=== PATIENT | male | born 1980 | race Caucasian/White ===

== ENCOUNTER 2020-09-02 09:54 | Emergency (ER) | payer MEDICAID, SELFPAY ==
--- NOTE | 2020-09-02 10:38 | XR_ITS ---
EXAMINATION: XR SACRUM AND COCCYX CLINICAL INFORMATION: Coccyx: Pain. COMPARISON: None TECHNIQUE: 2 views of the sacrum and 2 views of the coccyx were obtained. FINDINGS: There is normal sacrococcygeal curvature. No acute fracture is seen. The sacroiliac joints are unremarkable. The soft tissues are unremarkable. XR/XR sacrum coccyx min 2V IMPRESSION: Unremarkable examination.
[2020-09-02 10:41] VITALS: PULSE 90; RESP 16; TEMP 37.3; O2SAT 98; BMI 38.7
--- NOTE | 2020-09-02 10:43 | ED.BACK ---
HPI - Back Pain/Injury General Chief Complaint: Back Pain/Injury Stated Complaint: Tail bone pain Time Seen by Provider: 09/02/20 10:28 Source: patient Mode of arrival: ambulatory Limitations: language barrier ( Syrian-speaking) History of Present Illness HPI Narrative: 40yoM c PMHx of hypertension and hyperlipidemia presenting to the ED with complaints of left-sided coccyx pain after prolonged sitting at work. Denies any other complaints or concerns at this time. Related Data Previous Rx's Medication Instructions Recorded cyclobenzaprine 10 mg PO TID PRN #10 tab 09/02/20 oxycodone-acetaminophen [Percocet] 1 tab PO Q6H PRN #10 tab 09/02/20 Allergies Allergy/AdvReac Type Severity Reaction Status Date / Time aspirin Allergy Severe angioedema Verified 09/02/20 10:38 Review of Systems Review of Systems: Constitutional : No trauma, No Weight loss, No Fever, No Chills, ENT/Mouth : No Hearing loss, No Ear Pain, No Nasal Congestion, No Sinus Pain, No Hoarseness, No sore throat, No Rhinorrhea, No Swallowing Difficulty Cardiovascular : No Chest Pain, No SOB Respiratory : No Cough, No Dyspnea Gastrointestinal : No Nausea, No Vomiting, No Diarrhea, No abdominal Pain, No Hematochezia, No Melena Genitourinary : No Dysuria, No Urinary Frequency, No Hematuria, No Urinary or Bowel Incontinence/retention Musculoskeletal : + Back/buttocks pain, No neck pain, No joint stiffness, No joint swelling Skin : No Skin Lesions, No rash or signs of infection Neuro : No Weakness, No radiation, No Numbness, No Paresthesias, No headache, no loss of bowel or bladder incontinence, no saddle anesthesia Denies history of IV drug usage. Yes all other systems are reviewed and are negative [facility] Past Medical History Attestation statement: The following information was validated with the patient. Social History Social History Smoking Status: Never smoker Use of substances other than those prescribed or required for medical reasons: No Advance Directives: No Advance Directives Information Provided: Yes Physical Exam Vital Signs: Vital Signs: Last Vital Signs Temp 99.2 F 09/02/20 10:41 Pulse 90 09/02/20 10:41 Resp 16 09/02/20 10:41 Pulse Ox 98 09/02/20 10:41 Body Mass Index 38.7 vital signs have been reviewed as normal and appeared to be correct. Blood pressure normal. Heart rate normal. Respiration rate normal. Temperature normal. Oxygen saturation normal. Appearance: Alert. Oriented X3. No acute distress. Head: Normal external exam. Normocephalic. Eyes: PERRLA. EOMI. Conjunctiva and sclera normal. Eyelids normal. ENT: EAC normal. TM's Normal. Pharynx normal. Uvula midline. Moist mucous membranes. Neck: Normal inspection. Neck supple. FROM. No adenopathy. No meningeal signs. CVS: Normal heart rate and rhythm. Heart sound normal. No murmurs noted. Pulses normal throughout. Respiratory: No respiratory distress. Painless inspiration. Breath sounds normal. No wheezes/rales/rhonchi noted. Chest nontender. No accessory muscle usage noted or decreased air movement noted. Back: Full range of motion noted. No obvious deformities, or edema. TTP of coccyx left/buttocks aspect. No obvious deformities noted. No rashes / lesion/induration/ fluctuance or signs of infection noted. Full ROM in back and lower extremities. 5/5 strength hip extension/flexion, abduction, adduction. Straight leg raise test negative on right; Straight leg raise test negative on left; Reflexes normal ankle and knee bilaterally; EHL motor strength normal bilaterally Skin: Skin warm and dry. Normal skin color. Normal skin turgor. No rashes/lesions/lacerations noted. Extremities: Extremities exhibit normal range of motion. Extremities nontender. Neuro: Oriented X 3. No motor deficit. No sensory deficit. Reflexes normal. Course Course Course Narrative: 10:40am - 40yoM c PMHx of hypertension and hyperlipidemia presenting to the ED with complaints of left-sided coccyx pain after prolonged sitting at work. - Xray of coxxyx bones then Re-evaluate MDM - Back Pain/Injury Medical Records Attestation: I reviewed the patient's medical records. Imaging Data COCCYX BONE: Attestation: I personally reviewed and interpreted this imaging study as follows: Radiologist's impression: FINDINGS: There is normal sacrococcygeal curvature. No acute fracture is seen. The sacroiliac joints are unremarkable. The soft tissues are unremarkable. XR/XR sacrum coccyx min 2V IMPRESSION: Unremarkable examination. Discharge Plan Discharge Clinical Impression: Coccyx pain Muscle strain of gluteal region Qualifiers: Encounter type: initial encounter Laterality: left Qualified Code(s): S76.012A - Strain of muscle, fascia and tendon of left hip, initial encounter Patient Disposition: Home, Self-Care Instructions: Muscle Strain (ED) Additional Instructions: Le di gab lista del consultorio del proveedor de atenci?n primaria que puede llamar a continuaci?n si no tiene un proveedor de atenci?n primaria. Regrese si hay s?ntomas nuevos o que empeoran si no se hace un seguimiento con dowling proveedor de atenci?n primaria. I gave you a list of primary care provider's office is you can call below if you do not have a primary care provider. Return if any new or worsening symptoms if not follow up with her primary care provider. Prescriptions: New cyclobenzaprine 10 mg tablet 10 mg PO TID PRN (Reason: muscle spasm) Qty: 10 RF: 0 oxycodone-acetaminophen [Percocet] 5-325 mg tablet 1 tab PO Q6H PRN (Reason: pain) Qty: 10 RF: 0 Referrals: [facility] [Provider Group] - 2 days [facility] [Provider Group] - [place] [facility] [place] [facility] - [place] [facility] [place] [facility] [place] [facility]Provider Group] - 2 days Stand Alone Forms: Work/School Release Print Language: Syrian
== END 2020-09-02 11:38 | disposition home or self-care (01) ==
PROVIDERS: Emergency Provider Emergency Medicine
DX: S76.012A Strain of muscle, fascia and tendon of left hip, initial encounter (principal); M54.5 Low back pain; M25.552 Pain in left hip; X58.XXXA Exposure to other specified factors, initial encounter; Y93.9 Activity, unspecified; Y92.9 Unspecified place or not applicable; Y99.9 Unspecified external cause status; Z79.899 Other long term (current) drug therapy
CPT/HCPCS: 72220; 99283

== ENCOUNTER 2020-11-02 19:22 | Emergency (ER) | payer MEDICAID, SELFPAY ==
[2020-11-02 19:57] VITALS: BP 144/73; PULSE 95; RESP 18; TEMP 36; O2SAT 96; BMI 30.2
--- NOTE | 2020-11-02 19:59 | ED.GENADULT ---
HPI - General Adult General Chief complaint: Allergic Reaction <BECKY Martins - Last Filed: 11/02/20 20:02> Stated complaint: Allergic reaction <BECKY Martins - Last Filed: 11/02/20 20:02> Time Seen by Provider: 11/02/20 19:59 <BECKY Martins - Last Filed: 11/02/20 20:02> Source: patient <Lizett Jordan MD - Last Filed: 11/02/20 22:43> Mode of arrival: ambulatory <Lizett Jordan MD - Last Filed: 11/02/20 22:43> Limitations: no limitations <Lizett Jordan MD - Last Filed: 11/02/20 22:43> History of Present Illness HPI narrative: Patient comes emergency room complaining of bilateral eye swelling, worse on the left side. Patient states that he is known to have allergy to aspirin, patient took Tylenol at noon, 15:00 and 18:00, at 18:00 he states that his eyes started swelling, becoming very itchy. Patient has no shortness of breath, no foreign body sensation in the throat, no rash <Lizett Jordan MD - Last Filed: 11/02/20 22:43> MD complaint: Allergic reaction <Lizett Jordan MD - Last Filed: 11/02/20 22:43> Related Data Home medications: Previous Rx's Medication Instructions Recorded cyclobenzaprine 10 mg PO TID PRN #10 tab 09/02/20 oxycodone-acetaminophen [Percocet] 1 tab PO Q6H PRN #10 tab 09/02/20 <BECKY Martins - Last Filed: 11/02/20 20:02> Allergies/adverse reactions: Allergies Allergy/AdvReac Type Severity Reaction Status Date / Time aspirin Allergy Severe angioedema Verified 11/02/20 19:57 <BECKY Martins - Last Filed: 11/02/20 20:02> Review of Systems Review of Systems: Constitutional : No Weight loss, No Fever, No Chills, No Night Sweats, No Fatigue, No Malaise ENT/Mouth : No Hearing loss, No Ear Pain, No Nasal Congestion, No Sinus Pain, No Hoarseness, No sore throat, No Rhinorrhea, No Swallowing Difficulty Eyes: Bilateral eye swelling, No Eye Pain, No Swelling, bilateral Redness and itchiness, No Foreign Body, No Discharge, No Vision Changes Cardiovascular : No Chest Pain, No SOB, No Dyspnea on Exertion, No Orthopnea, No Edema, No Palpitations Respiratory : No Cough, No Sputum, No Wheezing, No Smoke Exposure, No Dyspnea Gastrointestinal : No Nausea, No Vomiting, No Diarrhea, No Constipation, No abdominal Pain, No Hematochezia, No Melena Genitourinary : no irregular bleeding, No Dysuria, No Urinary Frequency, No Hematuria, No Urinary Incontinence, No Urgency, No Flank Pain, No Urinary Flow Changes, No Hesitancy Musculoskeletal : No joint pain, No Myalgias, No Joint Swelling Skin : No Skin Lesions, No rash Neuro : No Weakness, No Numbness, No Paresthesias, No Loss of Consciousness, No Dizziness, No Headache Psych : No Anxiety/Panic, No Depression, No SI/HI/AH/VH, No Social Issues, Heme/Lymph: No Bruising, No Bleeding,No Lymphadenopathy Endocrine : No Polyuria, No Polydipsia, No Temperature Intolerance <Lizett Jordan MD - Last Filed: 11/02/20 22:43> [facility] Past Medical History Medical History: Medical History (Updated 11/02/20 @ 22:41 by Lizett Jordan MD) Sinusitis <BECKY Martins - Last Filed: 11/02/20 20:02> Social History Social History: Social History Smoking Status: Never smoker Advance Directives: No Advance Directives Information Provided: Yes <BECKY Martins - Last Filed: 11/02/20 20:02> Physical Exam Vital Signs: Vital Signs: Last Vital Signs Temp 96.8 F 11/02/20 19:57 Pulse 95 11/02/20 19:57 Resp 18 11/02/20 19:57 BP 144/73 H 11/02/20 19:57 Pulse Ox 96 11/02/20 19:57 Body Mass Index 30.2 <BECKY Martins - Last Filed: 11/02/20 20:02> Vital Signs: Last Vital Signs Temp 96.8 F 11/02/20 19:57 Pulse 95 11/02/20 19:57 Resp 18 11/02/20 19:57 BP 144/73 H 11/02/20 19:57 Pulse Ox 96 11/02/20 19:57 Body Mass Index 30.2 <Lizett Jordan MD - Last Filed: 11/02/20 22:43> Appearance: Alert. Oriented X3. No acute distress. Eyes: Pupils equal, round and reactive to light. Bilateral conjunctival injection, mildly swollen lower eyelid on the left side ENT: Pharynx normal. Neck: Normal inspection. Neck supple. No lymph nodes noted. No crepitus CVS: Normal heart rate and rhythm. Pulses normal. Normal S1 and S2 Respiratory: No respiratory distress. Breath sounds normal. No Wheezing. No rales Abdomen: Soft and nontender. No rigidity. No distention. good BS x4 Skin: Skin warm and dry. Normal skin color. Normal skin turgor. Extremities: No lower extremity edema. No lower extremity edema. No Lacerations. No Rash Neuro: Oriented X 3. No motor deficit. No sensory deficit. Moving all extermities. No slurred speech. 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 No WOB or wheezing. No airway involvement. Will give PO benadryl, prednisone and pepcid now. <BECKY Martins - Last Filed: 11/02/20 20:02> Patient did not receive p.o. medications, he received IV Solu-Medrol, Pepcid, and Benadryl. Swelling in the eyes decreased. Patient feeling at baseline now. Patient not having any difficulty difficulty, no rash, no shortness of breath. I discussed with the patient also to discuss with the primary care physician to get an allergy scratch test. Patient did not develop an allergic reaction at 12 when patient initially had Tylenol so it is unlikely that he is allergic to Tylenol. <Lizett Jordan MD - Last Filed: 11/02/20 22:43> Discharge Plan Discharge Clinical Impression: Allergic reaction <BECKY Martins - Last Filed: 11/02/20 20:02> Patient Disposition: Home, Self-Care <BECKY Martins - Last Filed: 11/02/20 20:02> Instructions: General Allergic Reaction (ED) <BECKY Martins - Last Filed: 11/02/20 20:02> Additional Instructions: Please follow-up with your primary care physician tomorrow. If you have any worsening or new symptoms, please return to the emergency room or call 911 <BECKY Martins - Last Filed: 11/02/20 20:02> Prescriptions: No Action cyclobenzaprine 10 mg tablet 10 mg PO TID PRN (Reason: muscle spasm) Qty: 10 RF: 0 oxycodone-acetaminophen [Percocet] 5-325 mg tablet 1 tab PO Q6H PRN (Reason: pain) Qty: 10 RF: 0 <BECKY Martins - Last Filed: 11/02/20 20:02>
[2020-11-02] MEDS: diphenhydrAMINE HCL 50 MG/ML VIAL IVPUSH (21:27)
[2020-11-02] MEDS: methylPREDNISolone Sod Succ/PF 125 MG/2 ML VIAL IVPUSH (21:28)
[2020-11-02] MEDS: Famotidine/PF 20 MG/2 ML VIAL IVPUSH (21:28)
== END 2020-11-02 23:27 | disposition home or self-care (01) ==
PROVIDERS: Emergency Provider Emergency Medicine
DX: R22.0 Localized swelling, mass and lump, head (principal); T39.1X5A Adverse effect of 4-Aminophenol derivatives, initial encounter; Y92.019 Unspecified place in single-family (private) house as the place of occurrence of the external cause; I10 Essential (primary) hypertension
CPT/HCPCS: 96374; 96375; 99284; J1200; J2930

== ENCOUNTER 2021-04-05 11:38 | Emergency (ER) | payer MEDICAID, SELFPAY ==
--- NOTE | ~2021-04-05 | XR_ITS ---
EXAMINATION: XR ANKLE, RIGHT CLINICAL INFORMATION: Right ankle pain COMPARISON: None TECHNIQUE: AP, lateral, and mortise views of the right ankle. FINDINGS: There is moderate lateral malleolar soft tissue swelling. The ankle mortise and subtalar joints are normal. No visible acute fracture or dislocation seen. The small bony fragment tip of medial malleolus likely old injury. There is a small calcaneal heel and retrocalcaneal enthesophytes. XR/XR ankle RT min 3V IMPRESSION: Moderate lateral malleolar soft tissue swelling suggestive of ligamentous injury. Small calcaneal heel and calcaneal enthesophytes. No visible acute fracture or dislocation seen.
[2021-04-05 11:46] VITALS: BP 144/80; PULSE 98; RESP 18; TEMP 36.6; O2SAT 97; BMI 38.4
--- NOTE | 2021-04-05 12:38 | ED.EXTPRO ---
HPI - Extremity Problem General Chief complaint: Extremity Problem Stated complaint: ANKLE PAIN Time Seen by Provider: 04/05/21 12:37 Source: patient and client services analyst Mode of arrival: ambulatory Limitations: no limitations History of Present Illness HPI Narrative: chronic R foot issues but this weekend noted he stepped wrong x 3 now his ankle hurts and is swollen Complaint: extremity pain and extremity swelling Onset (ago): day(s) (3) Pain Consistency: constant Location: right and lower extremity Quality: aching Radiation: none Relieving factors: nothing Exacerbating factors: weight bearing and walking Associated symptoms: denies other symptoms Context: other (stepped wrong) Related Data Previous Rx's Medication Instructions Recorded cyclobenzaprine 10 mg PO TID PRN #10 tab 09/02/20 oxycodone-acetaminophen [Percocet] 1 tab PO Q6H PRN #10 tab 09/02/20 cyclobenzaprine 10 mg PO TID PRN #14 tab 04/05/21 Allergies Allergy/AdvReac Type Severity Reaction Status Date / Time aspirin Allergy Severe angioedema Verified 11/02/20 19:57 Review of Systems Review of Systems: Constitutional : No Fever, No Chills ENT/Mouth : No Ear Pain, No Hoarseness, No sore throat Eyes: No Eye Pain, No Swelling, No Redness, No Foreign Body Cardiovascular : No Chest Pain, No SOB Respiratory : No Cough, No Dyspnea Gastrointestinal : No Nausea, No Vomiting, No Diarrhea, No abdominal Pain Genitourinary : No Dysuria, No Hematuria Musculoskeletal : positive joint pain, No Myalgias, pos Joint Swelling Skin : No Skin lacerations, No rash Neuro : No Weakness, No Numbness, No Loss of Consciousness, No Dizziness, No Headache [facility] Past Medical History Attestation statement: The following information was validated with the patient. Medical History Sinusitis Social History Social History (Updated 04/05/21 @ 12:50 by Janene Mustafa DO) Alcohol intake: never Patient Tobacco Use Status: Never used Tobacco Physical Exam Vital Signs: Vital Signs: Last Vital Signs Temp 98 F 04/05/21 11:46 Pulse 98 04/05/21 11:46 Resp 18 04/05/21 11:46 BP 144/80 H 04/05/21 11:46 Pulse Ox 97 04/05/21 11:46 Body Mass Index 38.4 Appearance: Alert. Oriented X3. No acute distress. Eyes: Pupils equal, round and reactive to light. ENT: Pharynx normal. Neck: Normal inspection. Neck supple. CVS: Pulses normal. Respiratory: No respiratory distress. Abdomen: Soft no signs of trauma Skin: Skin warm and dry. Normal skin color. Normal skin turgor. Extremities: R ankle moderate swelling lateral malleolus, distal NV intact, no prox fibula ttp Neuro: Oriented X 3. No motor deficit. No sensory deficit. MDM - Extremity (Nontraumatic) MDM Narrative Medical decision making narrative: 40 yo male with likely inversion injury to R ankle this weekend after stepping wrong at this time will obtain xray, he is NV intact, no fracture noted, air cast crutches and follo wup with PCP no prox injury Discharge Plan Discharge Clinical Impression: Ankle sprain Qualifiers: Encounter type: initial encounter Involved ligament of ankle: anterior talofibular ligament Laterality: right Qualified Code(s): S93.491A - Sprain of other ligament of right ankle, initial encounter Patient Disposition: Home, Self-Care Instructions: Ankle Sprain (ED) Additional Instructions: return to ED for any worsening symptoms or concerns USE CRUTCHES FOR 5 DAYS, AIR SPLINT FOR 1 WEEK Prescriptions: New cyclobenzaprine 10 mg tablet 10 mg PO TID PRN (Reason: muscle spasm) Qty: 14 RF: 0 No Action cyclobenzaprine 10 mg tablet 10 mg PO TID PRN (Reason: muscle spasm) Qty: 10 RF: 0 oxycodone-acetaminophen [Percocet] 5-325 mg tablet 1 tab PO Q6H PRN (Reason: pain) Qty: 10 RF: 0 Referrals: Physician,Unknown [Primary Care Provider] - 5 days (recheck in one week ) Stand Alone Forms: Work/School Release
== END 2021-04-05 13:27 | disposition home or self-care (01) ==
LOC: HO.ED 13:06
PROVIDERS: Emergency Provider Emergency Medicine
DX: S93.491A Sprain of other ligament of right ankle, initial encounter (principal); X50.1XXA Overexertion from prolonged static or awkward postures, initial encounter; Y93.9 Activity, unspecified; Y92.9 Unspecified place or not applicable; Y99.9 Unspecified external cause status
CPT/HCPCS: 73610; 99283; 99284

== ENCOUNTER 2021-06-16 09:00 | Emergency (ER) | payer MEDICAID, SELFPAY ==
--- NOTE | ~2021-06-16 | XR_ITS ---
EXAMINATION: XR FOOT, RIGHT CLINICAL INFORMATION: Pain after injury COMPARISON: None TECHNIQUE: 3 views of the right foot of the right foot. FINDINGS: No acute fracture or dislocation is evident. Soft tissue swelling seen about the dorsal aspect of the tarsal bones. There appear to be old tug lesions about the dorsal aspect of the navicular with no definite irregular acute fracture fragment identified. Small plantar calcaneal spur present. XR/XR foot RT min 3V IMPRESSION: Soft tissue swelling without definite acute fracture appreciated.
[2021-06-16 09:12] VITALS: BP 126/81; PULSE 90; RESP 16; O2SAT 97
[2021-06-16 09:22] VITALS: BP 126/81; PULSE 90; RESP 16; TEMP 36.9; O2SAT 97; BMI 39.9
--- NOTE | 2021-06-16 09:22 | ED.GENADULT ---
HPI - General Adult General Chief complaint: Extremity Injury, Lower Stated complaint: rt ankle injury Time Seen by Provider: 06/16/21 09:12 Source: patient Limitations: no limitations History of Present Illness HPI narrative: Patient complaining of right foot and ankle pain. Patient has a prior injury back in March. Patient returns with [employer]irc[employer] and crutches. Patient describes jammed his foot in his work boot yesterday. Pain is 7/10 and increases with range of motion and palpation. Pain is achy in nature. Pain is located over the top of the right foot. Symptoms are moderate. Related Data Previous Rx's Medication Instructions Recorded cyclobenzaprine 10 mg tablet 10 mg PO TID PRN #10 tab 09/02/20 oxycodone-acetaminophen 5 mg-325 1 tab PO Q6H PRN #10 tab 09/02/20 mg tablet (Percocet) cyclobenzaprine 10 mg tablet 10 mg PO TID PRN #14 tab 04/05/21 methocarbamol 750 mg tablet 750 mg PO Q8H PRN #14 tab 06/16/21 Allergies Allergy/AdvReac Type Severity Reaction Status Date / Time aspirin Allergy Severe angioedema Verified 11/02/20 19:57 Review of Systems Review of Systems: Constitutional : No Weight loss, No Fever, No Chills, No Night Sweats, No Fatigue, No Malaise Cardiovascular : No Chest Pain, No SOB Respiratory : No Cough, No Sputum Gastrointestinal : No Nausea, No Vomiting, No Diarrhea Musculoskeletal : Right foot ankle pain. Neuro : No weakness, no headache Heme/Lymph: No Bruising, No Bleeding PMFSH Past Medical History Attestation statement: The following information was validated with the patient. Medical History (Updated 06/16/21 @ 10:02 by Tano Multani) HTN (hypertension) Sinusitis Social History Social History Alcohol intake: never Patient Tobacco Use Status: Never used Tobacco Advance Directives: No Advance Directives Information Provided: No Physical Exam Vital Signs: Vital Signs: Last Vital Signs Temp 98.4 F 06/16/21 09:22 Pulse 90 06/16/21 09:22 Resp 16 06/16/21 09:22 BP 126/81 06/16/21 09:22 Pulse Ox 97 06/16/21 09:22 Body Mass Index 39.9 vital signs have been reviewed as normal and appeared to be correct. Blood pressure normal. Heart rate normal. Respiration rate normal. Temperature normal. Oxygen saturation normal. Appearance: Alert. Oriented X3. No acute distress. Head: Normal external exam. Normocephalic. Atraumatic. Eyes: PERRLA. EOMI. ENT: Pharynx normal. Uvula midline. Moist mucous membranes. Neck: Soft full range of motion, no JVD CVS: Heart regular rate and rhythm no murmurs and rubs Respiratory: Breath sounds are clear to auscultation bilaterally. No accessory muscle use noted. Back: Full range of motion noted. Skin: Skin warm dry no ecchymosis noted no rashes Extremities: Right foot positive tenderness over the dorsum pulses sensation intact positive range of motion lateral medial malleolus nontender. Neuro: Oriented X 3. No motor deficit. No sensory deficit. Course Course Course Narrative: Right foot sprain Right foot contusion Right foot fracture Symptoms are consistent with musculoskeletal strain x-ray of the right foot pending. Medical Decision Making Imaging Data foot: Radiologist's impression: [address] [address] XRay Report Signed Patient: Jonatan Kiran MR#: [id number] : 1980 Acct:[id number] Age/Sex: 41 / M ADM Date: 06/16/21 Loc: HO.ED Attending Dr: Ordering Physician: Tano Multani Date of Service: 06/16/21 Procedure(s): XR foot RT min 3V Accession Number(s): [id number] cc: Tano Multani ~ EXAMINATION: XR FOOT, RIGHT CLINICAL INFORMATION: Pain after injury? COMPARISON: None? TECHNIQUE: 3 views of the right foot of the right foot. FINDINGS: No acute fracture or dislocation is evident. Soft tissue swelling seen about the dorsal aspect of the tarsal bones. There appear to be old tug lesions about the dorsal aspect of the navicular with no definite irregular acute fracture fragment identified. Small plantar calcaneal spur present. XR/XR foot RT min 3V IMPRESSION: Soft tissue swelling without definite acute fracture appreciated. Dictated By: Ramu Garcia MD Signed By: <Electronically signed by Ramu Garcia MD in OV> 06/16/21942 DD/ 0 TD/TT:? Assistant Research Scientist: LINDSEY Discharge Plan Discharge Clinical Impression: Right foot sprain Patient Disposition: Home, Self-Care Instructions: Foot Sprain (ED) Additional Instructions: X-rays negative rest ice elevation Prescriptions: New methocarbamol 750 mg tablet 750 mg PO Q8H PRN (Reason: pain (scale score 4-6)) Qty: 14 RF: 0 No Action cyclobenzaprine 10 mg tablet 10 mg PO TID PRN (Reason: muscle spasm) Qty: 10 RF: 0 oxycodone-acetaminophen [Percocet] 5-325 mg tablet 1 tab PO Q6H PRN (Reason: pain) Qty: 10 RF: 0 cyclobenzaprine 10 mg tablet 10 mg PO TID PRN (Reason: muscle spasm) Qty: 14 RF: 0 Stand Alone Forms: Work/School Release Print Language: Cymro
== END 2021-06-16 10:30 | disposition home or self-care (01) ==
PROVIDERS: Emergency Provider Emergency Medicine
DX: S93.601A Unspecified sprain of right foot, initial encounter (principal); X50.1XXA Overexertion from prolonged static or awkward postures, initial encounter; Y93.9 Activity, unspecified; Y92.9 Unspecified place or not applicable; Y99.9 Unspecified external cause status
CPT/HCPCS: 73630; 99283

== ENCOUNTER → 2021-10-06 10:00 | Outpatient (REF) | payer MEDICAID, SELFPAY | LOC: HO.SL 10:00 | PROVIDERS: PCP Nurse Practitioner Family; Visit Provider Nurse Practitioner Family | DX: E66.01 Morbid (severe) obesity due to excess calories (principal); R06.83 Snoring; F41.9 Anxiety disorder, unspecified; I10 Essential (primary) hypertension; M79.671 Pain in right foot; T78.3XXD Angioneurotic edema, subsequent encounter; Z68.41 Body mass index [BMI] 40.0-44.9, adult | CPT/HCPCS: 95806 ==

== ENCOUNTER → 2022-05-18 08:30 | Outpatient (REF) | payer MEDICAID, SELFPAY ==
--- NOTE | 2022-05-18 08:59 | CA_ITS ---
Transthoracic Echocardiogram Patient (Last, First, Middle): Jonatan Kiran L Gender: Male Date of : 1980 Age: 42 Procedure Date: 05/18/2022 Procedure Type: Transthoracic Echocardiogram Location: OP Height: 175.26 cm Weight: 127.01 kg BSA: 2.38 m2 Heart Rate: bpm BP: 110 / 76 mmHg Director Trust: TO Referring MD: Shalonda Yee Decker Operator: Chirag Frank MD Symptoms: E66.9, G47.33, R06.81 Study Quality: Technically Difficult/Contrast ECG Rhythm: Sinus Conclusions: - 1. Low normal LV systolic function with LVEF of 50-55% with mild LVH 2. Normal cardiac valvular Doppler 3. No gross pericardial effusion Findings Procedure Information Contrast agent, definity, is being given per protocol without apparent complications. Left Ventricle Normal left ventricular cavity size. There is mildly increased left ventricular wall thickness. The left ventricular systolic function is low normal. The visually estimated ejection fraction is between 50-55%. Spectral Doppler is indicative of a normal filling pattern. Right Ventricle Normal right ventricular cavity size. There is normal right ventricular systolic function. Atria The left atrium is normal in size. Interatrial shunt cannot be excluded. The right atrium was not well visualized. Aortic Valve The aortic valve structure and function is likely normal. There is no aortic valve stenosis. There is no aortic valve regurgitation. Mitral Valve Normal mitral valve structure and function. There is trace mitral valve regurgitation. There is no mitral valve stenosis. Pulmonic Valve The pulmonic valve was not well visualized. Tricuspid Valve The tricuspid valve was not well visualized. Tricuspid regurgitation envelope is inadequate for calculation of right ventricular systolic pressure. Normal right atrial pressure. Great Vessels All visible segments of the aorta are normal in size. The pulmonary artery was not well visualized. Venous The inferior vena cava is normal in size and collapses greater than 50% with inspiration. Pericardium/Pleural The pericardium was not well visualized. Prior Study Comparison No prior study available for comparison. Measurements 2D Linear Measurements IVSd: 1.24 0.6-0.9/0.6-1.0 cm LVIDd: 5.33 3.9-5.3/4.2-5.9 cm LVIDd Index: 2.24 2.4-3.2/2.2-3.1 cm/m2 LVIDs: 3.92 2.0-3.6 cm LVPWd: 1.23 0.7-1.1 cm LV Mass: 336.06 67-162/88-224 g LV Mass Index: 141.20 43-95/49-115 g/m2 LVOT Diam: 2.30 3.0+(-)1.3 cm 2D Systolic Function EF 4C: 47.30 >55% EF 2C: 57.90 >55% EF BiP: 50.30 >55% Mitral Valve MV Pk E: 0.75 MV PK A: 0.57 MV Decel Time: 158.00 E/A: 1.30 E'Lateral: 11.30 E'Medial: 7.94 E/E' Med: 9.50 E/E' Lat: 6.70 PHT: 46.00 MVA PHT: 4.78 Decel Hooker: 4.78 Aortic Valve AoV Pk Gee: 1.22 AoV Mn Gee: 0.87 AoV VTI: 0.25 AoV Pk Grad: 6.00 Aov Mn Grad: 3.00 KAMARI Cont.VTI: 3.49 LVOT LVOT Pk Gee: 1.04 LVOT Mn Gee: 0.66 LVOT VTI: 0.21 LVOT Pk Grad: 4.00 LVOT Mn Grad: 2.00 LVOT Diam: 2.30 LVOT Area: 4.15 Diastolic Function MV Pk E: 0.75 MV Pk A: 0.57 E/A: 1.30 E'Medial: 7.94 E/E' Med: 9.50 E' Laterial: 11.30 E/E' Lat: 6.70 Right Ventricle TAPSE (mm): 25.90 TVS' Gee: 13.40 Tricuspid Valve RA Press: 3.00 Great Vessels Aorta Sinus of Valsalva: 3.59 2.0-3.5 cm Ao Asc: 3.40 2.1-3.4 cm Updated in Other Vendor System with Status of Final Chirag Frank MD electronically signed on 05/19/2022 5:45:01 PM with status of Final
== END ==
LOC: HO.CARD 08:30
PROVIDERS: Visit Provider Nurse Practitioner Family
DX: E66.9 Obesity, unspecified (principal); G47.33 Obstructive sleep apnea (adult) (pediatric)
CPT/HCPCS: 93306; Q9957

== ENCOUNTER → 2022-05-19 10:56 | Outpatient (BNVA) | payer MEDICAID, SELFPAY | PROVIDERS: PCP Nurse Practitioner Family; Visit Provider Nurse Practitioner Family | DX: G47.33 Obstructive sleep apnea (adult) (pediatric) (principal) | CPT/HCPCS: 99202 ==

== ENCOUNTER 2022-10-05 10:35 | Outpatient (REF) | payer MEDICAID, SELFPAY ==
--- NOTE | ~2022-10-05 | XR_ITS ---
EXAMINATION: XR CERVICAL SPINE CLINICAL INFORMATION: Lhermitte's phenomenon with neck extension. COMPARISON: None. TECHNIQUE: 6 views of the cervical spine, inclusive of flexion and extension views, were obtained. FINDINGS: No abnormal prevertebral soft tissue swelling is seen. No acute cervical spine fracture is noted. Disc spaces are maintained. There is mild spurring anteriorly at the C3-C4 level. Bony neural foramina appear unremarkable. XR/XR cervical spine 5V IMPRESSION: No significant bony abnormality of cervical spine identified.
--- NOTE | ~2022-10-05 | XR_ITS ---
EXAMINATION: XR SHOULDER, RIGHT CLINICAL INFORMATION: Right shoulder swelling COMPARISON: None TECHNIQUE: Three views of the right shoulder. FINDINGS: There is no evidence of acute fracture or dislocation of the right shoulder. No calcific tendinitis identified. Glenohumeral joint appears unremarkable. No significant abnormality of the acromioclavicular joint is seen. No widening of the coracoclavicular space is seen. XR/XR shoulder RT min 2V IMPRESSION: No significant bony abnormality of the right shoulder identified.
== END 2022-10-05 10:36 | disposition home or self-care (01) ==
LOC: HO.XRAY 10:35
PROVIDERS: Visit Provider Registered Nurse
DX: M25.511 Pain in right shoulder (principal)
CPT/HCPCS: 72050; 73030

== ENCOUNTER 2022-10-26 10:23 | Outpatient (REF) | payer MEDICAID, SELFPAY ==
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
== END 2022-10-26 10:24 | disposition home or self-care (01) ==
LOC: HO.XRAY 10:23
PROVIDERS: Visit Provider Internal Medicine
DX: M79.671 Pain in right foot (principal)
CPT/HCPCS: 73630

== ENCOUNTER → 2022-11-24 09:00 | Outpatient (BNVA) | payer MEDICAID, SELFPAY | PROVIDERS: PCP Nurse Practitioner Family; Visit Provider Nurse Practitioner Family | DX: Z13.89 Encounter for screening for other disorder (principal) ==

== ENCOUNTER 2022-11-30 12:38 | Outpatient (REF) | payer MEDICAID, SELFPAY ==
--- NOTE | 2022-11-30 09:15 | EMG_ITS ---
Please see scanned EMG / Nerve Conduction Report. MTDD
== END 2022-11-30 12:39 | disposition home or self-care (01) ==
LOC: HO.NEURO 12:38
PROVIDERS: PCP Nurse Practitioner Family; Visit Provider Registered Nurse
DX: R20.0 Anesthesia of skin (principal); R20.2 Paresthesia of skin
CPT/HCPCS: 95885; 95913

== ENCOUNTER → 2022-12-16 10:02 | Outpatient (REF) | payer MEDICAID, SELFPAY | LOC: HO.SL 10:02 | PROVIDERS: PCP Nurse Practitioner Family; Visit Provider Nurse Practitioner Family | DX: G47.33 Obstructive sleep apnea (adult) (pediatric) (principal) | CPT/HCPCS: 95806 ==

== ENCOUNTER → 2023-02-23 09:18 | Outpatient (BNVA) | payer MEDICAID, SELFPAY | PROVIDERS: PCP Nurse Practitioner Family; Visit Provider Nurse Practitioner Family | DX: G47.33 Obstructive sleep apnea (adult) (pediatric) (principal); I10 Essential (primary) hypertension; Z99.89 Dependence on other enabling machines and devices | CPT/HCPCS: 99212 ==

== ENCOUNTER 2023-09-01 08:23 | Outpatient (REF) | payer OTHER, SELFPAY ==
[2023-09-01 11:29] LABS: Hematocrit 42.1 % (42.0-52.0); Hemoglobin 13.9 g/dl (14.0-18.0); Mean Corpuscular Hemoglobin 28.7 pg (27.0-33.0); Mean Corpuscular Volume 86.8 fL (80.0-98.0); Mean Platelet Volume 10.5 fL (9.4-12.4); Platelet Count 268 X10*3/uL (160-400); Red Blood Count 4.85 X10*6/uL (4.60-5.80); Red Cell Distribution Width 13.2 % (11.0-16.0); White Blood Count 6.7 X10*3/uL (4.8-10.8)
[2023-09-01 12:04] LABS: Estimated Average Glucose 114 mg/dL; Hemoglobin A1c % 5.6 % (<6.0)
[2023-09-01 12:06] LABS: Alanine Aminotransferase 19 U/L (0-40); Albumin Level 4.1 g/dL (3.5-5.0); Alkaline Phosphatase 61 U/L (39-117); Anion Gap 11 (12-20); Aspartate Amino Transferase 16 U/L (5-37); Bilirubin Total 0.5 mg/dL (0.0-1.0); Blood Urea Nitrogen 11 mg/dL (9-16); Calcium 9.2 mg/dL (8.4-10.2); Carbon Dioxide 30 mmol/L (22-29); Chloride 104 mmol/L (96-108); Cholesterol 174 mg/dL (<200); Estimated Glomerular Filt Rate > 60; Glucose Random 107 mg/dL (60-115); HDL Cholesterol 38 mg/dL (>40); LDL Cholesterol Calculated 119 mg/dL (<100); Sodium 141 mmol/L (135-145); Total Protein 7.3 g/dL (6.5-8.0); Triglycerides 88 mg/dL (<150)
[2023-09-01 12:07] LABS: HBsAGNum1 0.38 S/CO (0.00-0.99); Hepatitis B Surface Antigen Negative (Negative)
[2023-09-01 12:09] LABS: HBc Num1 0.06 S/CO (0.00-0.79); HIV AB/AG Nonreactive (Nonreactive); HIV Num 1 0.06 S/CO (0.00-0.99); Hepatitis B Core Antibody Nonreactive (Nonreactive); ~HepC Num1 0.13 S/CO (0.00-0.79); ~Hepatitis B Surface Antibody NONREACTIVE (Nonreactive); ~Hepatitis C Antibody Nonreactive (Nonreactive)
[2023-09-01 12:10] LABS: Syphilis Screen Nonreactive (Nonreactive)
[2023-09-01 12:17] LABS: Creatinine Urine 131.97 mg/dL
[2023-09-01 12:24] LABS: TSH reflex Free T4 3.81 uIU/mL (0.32-4.0)
[2023-09-01 13:04] LABS: CT PCR NOT DETECTED (Not Detect.); NG PCR NOT DETECTED (Not Detect.)
[2023-09-01 14:57] LABS: Folate 11.2 ng/mL (> or = 4.0); Vitamin B12 414 pg/mL (200-900)
== END 2023-09-01 08:24 | disposition home or self-care (01) ==
LOC: HO.HHCL 08:23
PROVIDERS: Visit Provider Student in an Organized Health Care Education/Training Program
DX: Z00.00 Encounter for general adult medical examination without abnormal findings (principal); Z11.4 Encounter for screening for human immunodeficiency virus [HIV]; Z11.3 Encounter for screening for infections with a predominantly sexual mode of transmission; D64.9 Anemia, unspecified
CPT/HCPCS: 0353U; 36415; 80053; 80061; 82043; 82570; 82607; 82746; 83036; 84443; 85027; 86704; 86706; 86780; 86803; 87340; 87389

== ENCOUNTER 2025-02-10 09:04 | Outpatient (REF) | payer OTHER, SELFPAY ==
--- NOTE | ~2025-02-10 | XR_ITS ---
EXAMINATION: XR FOOT, LEFT CLINICAL INFORMATION: ongoing left heel pain to eval for spurs COMPARISON: None available. TECHNIQUE: AP, lateral, and oblique views of the left foot. FINDINGS: No fracture, dislocation, or suspicious bone lesion. Normal bone mineralization. Normal alignment. Joint spaces are preserved. No significant arthropathy. The calcaneus has a normal appearance. Subtalar joints appear normal. Soft tissues appear normal. XR/XR foot LT min 3V IMPRESSION: 1. Normal left foot. No calcaneal spur. Electronically signed by: Felix Malik MD 02/10/2025 09:59 AM EDT
--- NOTE | ~2025-02-10 | XR_ITS ---
EXAMINATION: XR KNEE, BILATERAL CLINICAL INFORMATION: ongoing bl knee pain with craking COMPARISON: None available. TECHNIQUE: AP view bilateral knees standing, lateral views bilateral knees. FINDINGS: Right Knee: No fracture, dislocation, or suspicious bone lesion. Minimal medial compartment joint space narrowing. Joint spaces otherwise preserved. Normal alignment. No significant joint effusion. Normal soft tissues. Left Knee: No fracture, dislocation, or suspicious bone lesion. Minimal medial compartment joint space narrowing. Joint spaces otherwise preserved. Normal alignment. No significant joint effusion. Normal soft tissues. XR/XR Knee Francisco 1or 2V IMPRESSION: 1. No acute bony abnormalities. 2. Minimal symmetric medial compartment narrowing bilateral knees. Electronically signed by: Felix Malik MD 02/10/2025 10:04 AM EDT
--- OUTSIDE RECORDS SUMMARY | 2025-02-10 09:53 | XMS_ITS | Encounter Summary ---
Author Organization [employer] Address [address] [place] [address] [place] [address] Care Team Providers Care Vehicle Body Maker Name Role Phone Eleanor Cedeño MD Primary Care Pro vider Tio Youssef Unavailable Unavailable Reason for Visit * Reason Onset Date Comments chart prep 02/05/2025 Encounter Details Date Type Department Care Team ([facility] st Contact Info) Description 02/05/2025 Telephone [facility] [address] [place] [address] Eleanor Cedeño MD [address] [place], [place] [phone] chart prep Social History Tobacco Use Types Packs/Day Years Used Date Smoking Tobacco: Former Cigarettes Passive Smoke Exposure: Never Smokeless Tobacco: Never Comments:Started smoking tob acco 20 years of age and stopped at his 24 y of age ---social use then Alcohol Use Standard Drinks/Week Comments Yes 0 (1 standard drink = 0.6 oz pur e alcohol) binging alcohol Depression Answer Date Recorded Patient Health Questionnaire-9 Score 8 03/18/2024 Patient Health Questionnaire-9 Score 8 03/18/2024 Last PHQ-9: Questionnaire Data Not on file 0 03/18/2024 Housing Stability Answer Date Recorded What is your housing situation today? I have venecia kraft 06/11/[address] you li ve. Do you have problems with any of the following? None of the above 06/11/2024 Food Insecurity Answer Date Recorded Within the past 12 months, y ou worried that your food would run out before you got money to buy more: Never True 06/11/2024 Within the past 12 months,th e food you bought just didn't last and you didn't have enough money to get more: Never True Transportation Answer Date Recorded In the past 12 months, has l ack of transportation kept you from medical appts, meetings, work or from getting things needed for daily living? No 06/11/2024 Utilities Answer Date Recorded In the past 12 months, has t he electric, gas, oil or water company threatened to shut off services in your home? No 06/11/2024 Depression Answer Date Recorded Patient Health Questionnaire-2 Score 3 03/18/2024 Sex and Gender Information Value Date Recorded Sex Assigned at Male 08/15/2022 10:37 AM EDT Legal Sex Male 10:37 AM EDT Gender Identity Male 08/15/2022 10:37 AM EDT Sexual Orientation Straight 08/15/2022 10 :37 AM EDT documented as of this encounter Miscellaneous Notes * Telephone Encounter - Maribel Keys [place] - 02/05/2025 2:48 PM EDT Chart Prep Labs: done Images: not done Vaccines due: Covid Due, Hep B Due, PCV20 Due, and Flu Due Referrals: Completed Screenings: Not Applicable Overdue care gaps: Sbirt, SDOH, and Disability documented in this encounter Plan of Treatment Upcoming Encounters Date Type Department Care Team (Late st Contact Info) Description 05/06/2025 9:15 AM EDT Office Visit [facility] [address] [place] [phone] Eleanor Cedeño MD [address] [place] [address] documented as of this encounter Visit Diagnoses Not on filedocumented in this encounter Additional Health Concerns Assessment Noted Time PHQ-9 Depression Total Score: 8 03/18/20 24 8:53 AM EDT documented as of this encounter Care Teams Vehicle Body Maker Relationship Specialty Start Date End Date Eleanor Cedeño MD [address] [place] [address] PCP - General Internal Medicine 07/06/23 Tio Youssef FNP [address] [place] [address] Nurse Practitioner Family Medicine 09/05/23 documented as of this encounter
--- OUTSIDE RECORDS SUMMARY | 2025-02-10 09:53 | XMS_ITS | Encounter Summary ---
Author Organization [employer] Address [address] [facility] [address] [place] [address] Care Team Providers Care Post Acute Care Registered Nurse Name Role Phone Eleanor Cedeño MD Primary Care Pro vider Tio Youssef Unavailable Unavailable Encounter Details Date Type Department Care Team (Latest Contact Info) Description 02/06/2025 Travel Social History Tobacco Use Types Packs/Day Years [...] AM EDT documented as of this encounter Plan of Treatment Upcoming Encounters Date Type Department Care Team (Late st Contact Info) Description 05/06/2025 9:15 AM EDT Office Visit [facility] MEDICINE [address] [place] [phone] Eleanor Cedeño MD [address] [place] [phone] documented as of this encounter Visit Diagnoses Not on filedocumented in this encounter Additional Health Concerns Assessment Noted Time PHQ-9 Depression Total Score: 8 03/18/20 24 8:53 AM EDT documented as of this encounter Care Teams Post Acute Care Registered Nurse Relationship Specialty Start Date End Date Eleanor Cedeño MD [address] [place] [phone] PCP - General Internal Medicine 07/06/23 Tio Youssef FNP [address] [place] [phone] Nurse Practitioner Family Medicine 09/05/23 documented as of this encounter
--- OUTSIDE RECORDS SUMMARY | 2025-02-10 09:53 | XMS_ITS | Clinical Summary ---
Author Organization [employer] Address [address] [place] [address] 7 [place] [address] Care Team Providers Care Data Warehouse Administrator Name Role Phone Eleanor Cedeño MD Primary Care Pro vider Tio Youssef Unavailable Unavailable Allergies Active Allergy Reactions Criticality Noted Date Comments William Inhibitors Angioedema High 12/18/2020 Aspirin 07/29/2020 Other reaction(s): Facial swelling, Trouble Breathing Nsaids Anaphylaxis High 12/18/2020 Other reaction(s): Trouble Breathing Medications diphenhydrAMINE (BENADryl) 25 MG capsule take 2 Capsule by oral route every 4 - 6 hours as needed as needed for allergy symptoms 021 Active Blood Pressure Monitoring (Blood Pressure Cuff) misc For take blood pressure once per day and record 020 Active acetaminophen (Tylenol Extra Strength) 500 MG tablet Take 1 tablet (500 mg) by mouth every 8 (eight) hours if needed for mild pain. 30 tablet 2 024 2024 Active melatonin 5 MG tablet Take 1 tablet (5 mg) by mouth if needed at bedtime (insomnia). 90 tablet 3 025 Active EPINEPHrine (Epipen) 0.3 MG/0.3ML injection syringe Inject 0.3 mL (0.3 mg) as directed 1 (one) time for 1 dose. Inject into upper leg. Call 911 after use. 1 each 025 Active Tirzepatide-Rex ght Management (Zepbound) 2.5 MG/0.5ML solution auto-injectorIn dications:Obesi ty Inject 0.5 mL (2.5 mg) under the skin 1 (one) time per week. Plan for monthly increase in dose 2 mL 2024 Active lidocaine-prilo romina (Emla) 2.5-2.5 % cream Apply topically if needed each day for mild pain. 30 g 2 Active amLODIPine (Norvasc) 10 MG tabletIndicatio ns:Essential hypertension TAKE 1 TABLET BY MOUTH EVERY MORNING. FOR BLOOD PRESSURE 90 tablet 1 Active OLANZapine (ZyPREXA) 7.5 MG tablet Take 1 tablet (7.5 mg) by mouth at bedtime. 90 tablet Active escitalopram (Lexapro) 10 MG tablet Take 1 tablet (10 mg) by mouth Once daily. 90 tablet Active escitalopram (Lexapro) 10 MG tablet Take 1 tablet (10 mg) by mouth Once daily. 90 tablet 3 024 2024 Discontinued(R eorder (will not trigger notification to Pharmacy)) melatonin 5 MG tabletIndicatio ns:Major depressive disorder with psychotic features (CMS/HCC) Take 1 tablet (5 mg) by mouth if needed at bedtime (insomnia). 90 tablet 3 024 2024 Discontinued(R eorder (will not trigger notification to Pharmacy)) OLANZapine (ZyPREXA) 7.5 MG tablet Take 1 tablet (7.5 mg) by mouth at bedtime. 90 tablet 3 024 2024 Discontinued(R eorder (will not trigger notification to Pharmacy)) DIGESTIVE ENZYMES PO Take by mouth. 2024 Discontinued(O ther) EPINEPHrine (Epipen) 0.3 MG/0.3ML injection syringe Inject 0.3 mL (0.3 mg) as directed 1 (one) time for 1 dose. Inject into upper leg. Call 911 after use. 1 each 024 2024 Discontinued(R eorder (will not trigger notification to Pharmacy)) Semaglutide-Rex ght Management (Wegovy) 0.25 MG/0.5ML solution auto-injectorIn dications:Morbi d obesity (CMS/HCC) Inject 0.25 mg subcutaneously once a week for weeks 1-4 2 mL 3 024 2024 Discontinued(O ther) Semaglutide-Rex ght Management (Wegovy) 0.5 MG/0.5ML solution auto-injectorIn dications:Morbi d obesity (CMS/HCC) Inject 0.5 mg subcutaneously weekly on weeks 5-8 2 mL 3 024 2024 Discontinued(O ther) amLODIPine (Norvasc) 10 MG tabletIndicatio ns:Essential hypertension TAKE 1 TABLET BY MOUTH EVERY MORNING. FOR BLOOD PRESSURE 90 tablet 1 024 2024 Discontinued(R eorder (will not trigger notification to Pharmacy)) Active Problems Problem Noted Date Diagnosed Date Knee pain 02/06/2025 Foot pain, left 02/06/2025 Cognitive impairment 02/06/2025 Major depressive disorder with psychotic feature s 09/27/2022 Assessment & Plan (03/18/2024 9:09 AM EDT): Presented with irritability, auditory hallucinations including commands; visual: shadows; also paranoia with sense of being watched and judged. Disturbed sleep, but also evidently SHANITA. ? cognitive limitations (?r/t meningitits in childhood?). Immature, plays with toys. Difficult historian. He now has CPAP machine, which has improved quality of sleep. Doing better. Hallucinations resolved. Mood is good. Will continue Lexapro 10 mg once daily, Olanzapine 7.5 mg at bedtime. F/U with therapist as usual. Since this provider will be retiring, patient is now referred back to his PCP for further medication management. Any issues or concerns, he should contact [facility]. All his questions were answered and I have wished him well. He agrees with the plan. Assessment & Plan (01/08/2024 9:22 AM EDT): Presented with irritability, auditory hallucinations including commands; visual: shadows; also paranoia with sense of being watched and judged. Disturbed sleep, but also evidently SHANITA. ? cognitive limitations (?r/t meningitits in childhood?). Immature, plays with toys. Difficult historian. He now has CPAP machine, which has improved quality of sleep. Doing better. Will continue Lexapro 10 mg once daily, Olanzapine 7.5 mg at bedtime, new prescriptions sent today. F/U with therapist as usual and with me in 2 months which will likely be our final appointment prior to my halfway. F/U with me in 2 months. He agrees with the plan. Assessment & Plan (11/07/2023 9:33 AM EST): Presented with irritability, auditory hallucinations including commands; visual: shadows; also paranoia with sense of being watched and judged. Disturbed sleep, but also evidently SHANITA. Appears to have cognitive limitations (?r/t meningitits in childhood?). Immature, plays with toys. Difficult historian. He now has CPAP machine, which has improved quality of sleep. Doing better. Will continue Lexapro 10 mg once daily, Olanzapine 7.5 mg at bedtime. Urged to call therapist to schedule F/U appt, or let us know if he needs a new referral. On 09/05/2023 provider informed the pt that I would be retiring. Meanwhile, F/U with me in 2 months. He agrees with the plan. Assessment & Plan (09/05/2023 9:50 AM EST): Presented with irritability, auditory hallucinations including commands; visual: shadows; also paranoia with sense of being watched and judged. Disturbed sleep, but also evidently SHANITA. Appears to have cognitive limitations (?r/t meningitits in childhood?). Immature, plays with toys. Difficult historian. He now has CPAP machine, which has improved quality of sleep. Falls asleep rapidly,, but still insufficient hours available to sleep r/t work schedule and family responsibilities. Hallucinations improved, but irritability persists. Will now increase to Lexapro 10 mg once daily. Continue Olanzapine 7.5 mg at bedtime. He has started with new therapist. Today 09/05/2023 provider informed the pt that I would be retiring within the next year or so, and suggest he discuss with therapist getting referral to agency psychiatric prescriber. F/U with me in 2 months. He agrees with the plan. Assessment & Plan (06/26/2023 9:58 AM EDT): Presented with irritability, auditory hallucinations including commands; visual: shadows; also paranoia with sense of being watched and judged. Disturbed sleep, but also evidently SHANITA. Appears to have cognitive limitations (?r/t meningitits in childhood?). Immature, plays with toys. Difficult historian. He now has CPAP machine, which has improved quality of sleep, but still insufficient hours available to sleep r/t work schedule and family responsibilities. Hallucinations improved. Family stressors, would be interested in counseling and I will refer. Will also add Lexapro 5 mg once daily. Continue Olanzapine 7.5 mg at bedtime. F/U with me in 1 month. He agrees with the plan. Assessment & Plan (04/25/2023 9:25 AM EDT): Presented with irritability, auditory hallucinations including commands; visual: shadows; also paranoia with sense of being watched and judged. Disturbed sleep, but also evidently SHANITA. Appears to have cognitive limitations (?r/t meningitits in childhood?). Immature, plays with toys. Difficult historian. He now has CPAP machine, is sleeping better and has more energy and brighter mood. Auditory hallucinations resolved but still having occasional visual hallucinations and paranoia. Will now increase to Olanzapine 7.5 mg at bedtime. F/U with me in 2 months. He agrees with the plan. Assessment & Plan (02/28/2023 9:34 AM EDT): Presented with irritability, auditory hallucinations including commands; visual: shadows; also paranoia with sense of being watched and judged. Disturbed sleep, but also evidently SHANITA. Appears to have cognitive limitations (?r/t meningitits in childhood?). Immature, plays with toys. Difficult historian. He now has CPAP machine, is sleeping better and has more energy and brighter mood. Tolerating new Olanzapine 5 mg and auditory hallucinations resolved. Still with some visual (shadows). Discussed option of increasing Olanzapine now vs. Waiting until next visit. He prefers to leave as is for now. F/U with me in 6-8 weeks. He agrees with the plan. Assessment & Plan (01/31/2023 9:24 AM EDT): with irritability, auditory hallucinations including commands; visual: shadows; also paranoia with sense of being watched and judged. Appears to have cognitive limitations (?r/t meningitits in childhood?). Immature, plays with toys. Difficult historian. Although he c/o problems with sleep he actually does not have sufficient time to sleep. Hallucinations have not improved, in fact he had at least one episode of what sounds like parasomnia (sensation of being unable to speak) with auditory hallucinations. On the other hand, he is doing better at work, ?less paranoid?. Will stop the Haloperidol 10 mg at bedtime. Will start Zyprexa (Olanzapine) 5 mg at bedtime. F/U 3-4 weeks. He agrees with the plan. Assessment & Plan (12/20/2022 9:40 AM EST): with irritability, auditory hallucinations including commands; visual: shadows; also paranoia with sense of being watched and judged. Appears to have cognitive limitations (?r/t meningitits in childhood?). Immature, plays with toys. Difficult historian. Although he c/o problems with sleep he actually does not have sufficient time to sleep. Still with some paranoia and auditory hallucinations. Will increase now to Haloperidol 10 mg at bedtime. F/U 6 weeks. He agrees with the plan. Assessment & Plan (11/08/2022 10:09 AM EST): with irritability, auditory hallucinations including commands; visual: shadows; also paranoia with sense of being watched and judged. Appears to have cognitive limitations (?r/t meningitits in childhood?). Immature, plays with toys. Difficult historian. Although he c/o problems with sleep he actually does not have sufficient time to sleep. Has tolerated new Haloperidol 2 mg without S/E but still with some paranoia and auditory hallucinations. Will increase now to Haloperidol 5 mg at bedtime. F/U 6 weeks. He agrees with the plan. Assessment & Plan (09/27/2022 10:01 AM EST): with irritability, auditory hallucinations including commands; visual: shadows; also paranoia with sense of being watched and judged. Appears to have cognitive limitations (?r/t meningitits in childhood?). Immature, plays with toys. Difficult historian. Although he c/o problems with sleep he actually does not have sufficient time to sleep. Melatonin 5 mg is helpful for falling asleep. Increased Abilify 10 mg seems to have caused restlessness. Will discontinue Abilify 10 mg. Will instead start haloperidol 2 mg at bedtime. Essential hypertension 09/21/2022 Overview (11/27/2022): -Continue with amlodipine 10mg daily -Continue with low salt diet and daily exercise Assessment & Plan (11/27/2022 6:39 PM EST): Follow up in 6 weeks for TP, sooner as needed. Pt in agreement with plan Obstructive sleep apnea syndrome 09/21/2022 Hypercholesterolemia 06/27/2021 Chronic back pain Alcohol dependence, binge pattern Morbid obesity Health care maintenance Encounters Date Type Department Care Team Description 02/06/2025 10:30 AM EDT Office Visit [facility] [address] [place] [phone] Eleanor Cedeño MD Pain in both knees, unspecified chronicity (Primary Dx); Major depressive disorder with psychotic features (CMS/HCC); Left foot pain; Obesity (BMI 30-39.9); Cognitive and behavioral changes; Alcohol dependence, binge pattern (CMS/HCC); Essential hypertension; Dietary counseling; Exercise counseling; Obstructive sleep apnea syndrome; Morbid obesity (CMS/HCC); Health care maintenance; Foot pain, left; Cognitive impairment 02/06/2025 Travel 02/05/2025 Telephone [facility] [address] [place] [address] Eleanor Cedeño MD chart prep 12/17/2024 Telephone [facility] [address] [place] [address] Eleanor Cedeño MD Med Refill from Last 3 Months Immunizations Name Administration Dates Next Due Influenza injectable quadriv alent preservative free 08/29/2023,09/12/2022,09/21/2021,2019 Influenza, IIV3, injectable 09/12/2022 Pfizer Covid-19 Vaccine 12+ 03/26/2021, Tdap 08/11/2020 Family History Medical History Relation Name Comments Colon cancer Maternal Grandfather Arthritis Mother Hypertension Mother Osteoarthritis Mother colon ca 60 of age Mother's Brother Throat cancer Mother's Sister Relation Name Status Comments Maternal Grandfather Mother Mother's Brother Mother's Sister Social History Tobacco Use Types Packs/Day Years Used Date Smoking Tobacco: Former Cigarettes Passive Smoke Exposure: Never Smokeless Tobacco: Never Tobacco Cessation:Counseling Given: Not Answered Comments:Started smoking tobacco 20 years of age and stopped at [...] Orientation Straight 08/15/2022 10 :37 AM EDT Last Filed Vital Signs Vital Sign Reading Time Taken Comments Blood Pressure 138/82 02/06/2025 10:37 AM EDT Pulse 88 02/06/2025 10:37 AM EDT Temperature 36.9 ??C (98.4 ??F) 02/06/2025 10:37 AM E DT Respiratory Rate 20 02/06/2025 10:37 AM EDT Oxygen Saturation 98% 02/06/2025 10:37 AM EDT Inhaled Oxygen Concentration - - Weight 137 kg (301 lb) 02/06/2025 10:37 AM EDT Height 175.3 cm (5' 9 ) 08/23/2024 11:53 AM EST Body Mass Index 44.45 08/23/2024 11:53 AM EST Plan of Treatment Upcoming Encounters Date Type Department Care Team (Late st Contact Info) Description 05/06/2025 9:15 AM EDT Office Visit [facility] [address] [place] [phone] Eleanor Cedeño MD [address] [place] [address] Health Maintenance Due Date Last Done Comments Alcohol/Substance Use Screening 1993 Family Planning (PISQ) 1996 Hepatitis B Vaccines (1 of 3 - 19+ 3-dose series) 2000 Pneumococcal Vaccine: Pediatrics (0 to 5 Years) and At-Risk Patients (6 to 49) Years) (1 of 2 - PCV) 2000 SDOH Screening 09/27/2023 09/27/2022 COVID-19 Vaccine ( - season) 2024 03/26/2021, 03/05/2021 Influenza Vaccine (#1) 2024 , 09/12/2022, 09/12/2022, Additional history exists Depression Screening 03/18/2025 03/18/2024, 03/18/20 24 Tobacco Screening 06/11/2025 06/11/2024 Lipid Panel 09/01/2028 09/01/2023, 0904/2021, 08/03/2020 DTaP/Tdap/Td Vaccines (2 - Td or Tdap) 08/11/2030 08/11/2020 Zoster Vaccines (1 of 2) 2031 RSV Patients and Patients Aged 60 years or older (1 - 1-dose 75+ series) 2056 HIV Screening Completed 09/01/2023, 08/03/2020 Hepatitis C Screening Completed 09/01/2023, 020 HIB Vaccines Aged Out No longer eligi ble based on patient's age to complete this topic HPV Vaccines Aged Out No longer eligi ble based on patient's age to complete this topic Hepatitis A Vaccines Aged Out No long er eligible based on patient's age to complete this topic IPV Vaccines Aged Out No longer eligi ble based on patient's age to complete this topic Meningococcal Vaccine Aged Out No regina shanti eligible based on patient's age to complete this topic RSV under 20 months Aged Out No longe r eligible based on patient's age to complete this topic Rotavirus Vaccines Aged Out No longer eligible based on patient's age to complete this topic Procedures Procedure Name Priority Date/Time Associated Diagnosis Comments ECG 12-LEAD Routine 02/06/2025 11:39 AM EDT Essential hypertension HEPATITIS C AB W/REFL TO HCV RNA, QN, PCR Routine 09/01/2023 8:25 AM EST Annual physical exam HIV 1/2 ANTIGEN/ANTIBODY, FOURTH GENERATION W/RFL Routine 09/01/2023 8:25 AM EST Annual physical exam LIPID PANEL, STANDARD Routine 09/01/2023 8:25 AM EST Annual physical exam from Last 3 Months or Most Recently Relevant to Health Maintenance Results * ECG 12 lead (02/06/2025 11:39 AM EDT) Narrative Eleanor Cedeño MD - 02/06/2025 11:39 AM EDT -EKG today 01/2025 For baseline: NSR,HR 74,Qtc 410, only noted Q wave in lead III but not seen in other leads us Eleanor Bey MD ECG ORDERABLES F inal Result * Hepatitis C Antibody with Reflex to HCV, RNA, Quantitative, Real-Time PCR (09/01/2023 8:25 AM EST) Hepatitis C Antibody Nonreactive Nonreactive [facility] Comment:Antibodies to HCV no t detected; does not exclude early acuteHCV infection. Blood Venous blood specimen / Unknown 09/01/2023 8:25 AM EST 09/01/2023 11:22 AM EST us Eleanor Bey MD LAB BLOOD ORDERAB LES Final Result Performing Organization Address [facility]/State/ZIP Co de Phone Number [facility] [address] [place] [phone] * HIV-1/2 Antigen and Antibodies, Fourth Generation, with Reflexes (09/01/2023 8:25 AM EST) Pathologist [facility] HIV AB/AG Nonreactive Nonreactive [facility] Comment:HIV-1 p24 Ag and/or HIV-1/HIV-2 Ab not detected.A test result that is nonreactive does not exclude thepossibility of exposure to or infection with HIV-1 and/orHIV-2. Nonreactive results in this assay for individualswith prior exposure to HIV-1 and/or HIV-2 may be due toantigen and antibody levels that are below the limit ofdetection of this assay.The [email or web address] HIV Ag/Ab Combo assay result andsupplemental assay results should be interpreted inconjunction with the patient's clinical presentation,history and other laboratory results. If the results areinconsistent with clinical evidence, additional testing issuggested to confirm the result. Blood Venous blood specimen / Unknown 09/01/2023 8:25 AM EST 09/01/2023 11:22 AM EST us Eleanor Bey MD LAB BLOOD ORDERAB LES Final Result [facility] [address] [place] [phone] * (ABNORMAL) Lipid Panel, Standard (09/01/2023 8:25 AM EST) Triglycerides 88 <150 mg/dL [facility] Comment:Desirable Triglyceri de: less than 150 mg/dLBorderline High Triglyceride 150-199 mg/dLHigh Triglyceride: 200-499 mg/dLVery High Triglyceride: greater than or equal to 5OO mg/dL Cholesterol 174 <200 mg/dL [facility] Comment:Desirable Cholestero l: less than 200 mg/dLBorderline High Cholesterol: 200-239 mg/dLHigh Cholesterol: greater than 239 mg/dL LDL Cholesterol Calculated 119(H) <100 mg/dL [facility] Comment:Desirable LDL: less than 100 mg/dLNear Optimal/Above Optimal LDL: 110- 129 mg/dLBorderline High LDL: 130-159 mg/dLHigh LDL: 160-189 mg/dLVery High LDL: greater than or equal to 190 mg/dL HDL Cholesterol 38(L) >40 mg/dL [facility] Comment:Desirable HDL: great er than 40 mg/dL Note: This HDL assay may give artificially low results in patients with liver disease. Blood Venous blood specimen / Unknown 09/01/2023 8:25 AM EST 09/01/2023 11:22 AM EST us Eleanor Bey MD LAB BLOOD ORDERAB LES Final Result [facility] [address] [place] [phone] from Last 3 Months or Most Recently Relevant to Health Maintenance Insurance [facility] Care Teams Data Warehouse Administrator Relationship Specialty Start Date End Date Eleanor Cedeño MD [address] [place] [phone] PCP - General Internal Medicine 07/06/23 Tio Youssef FNP [address] [place] [address] Nurse Practitioner Family Medicine 09/05/23
--- OUTSIDE RECORDS SUMMARY | 2025-02-10 09:53 | XMS_ITS | Encounter Summary ---
Author Organization [employer] Address [address] [place] [id number] Care Team Providers Care Optical Instrument Specialist Name Role Phone Eleanor Cedeño MD Primary Care Pro vider Tio Youssef Unavailable Unavailable Reason for Referral * Consultation (Routine) - Denied Specialty Diagnoses / Procedures Referred By Africa pepe Referred To Contact Psychology Diagnoses Cognitive and behavioral changes Eleanor Cedeño MD [address] [place] [address] Phone: tel: fax: Referral ID Status Reason Start Date Expiration Date V isits Requested Visits Authorized [id number] Denied Specialty Services Required 02/06/2025 02/06/2026 1 0 * Consultation (Routine) - Closed Specialty Diagnoses / Procedures Referred By Africa pepe Referred To Contact Physical Therapy Diagnoses Pain in both knees, unspecified chronicity Eleanor Cedeño MD [address] [place] [address] Phone: tel: fax: [facility] [place] [facility] [address] [place] [address] Phone: tel: fax: Referral ID Status Reason Start Date Expiration Date V isits Requested Visits Authorized [id number] Closed Specialty Services Required 02/06/2025 02/06/2026 1 1 * Medications - Closed Specialty Diagnoses / Procedures Referred By Contharsh t Referred To Contact Diagnoses Obesity (BMI 30-39.9) Eleanor Cedeño MD [address] [place] [id number] Phone: tel: fax: Referral ID Status Reason Start Date Expiration Date Visits Re quested Visits Authorized [id number] Closed 02/06/2025 02/06/2026 1 1 Reason for Visit * Reason Comments Follow-up Encounter Details Date Type Department Care Team ([facility] Contact Info) Description 02/06/2025 10:30 AM EDT Office Visit [facility] [address] [place] [id number] Eleanor Cedeño MD [address] [place] [phone] Pain in both knees, unspecified chronicity (Primary Dx); Major depressive disorder with psychotic features (CMS/HCC); Left foot pain; Obesity (BMI 30-39.9); Cognitive and behavioral changes; Alcohol dependence, binge pattern (CMS/HCC); Essential hypertension; Dietary counseling; Exercise counseling; Obstructive sleep apnea syndrome; Morbid obesity (CMS/HCC); Health care maintenance; Foot pain, left; Cognitive impairment Social History Tobacco Use Types Packs/Day Years [...] AM EDT documented as of this encounter Last Filed Vital Signs Vital Sign Reading Time Taken Comments Blood Pressure 138/82 02/06/2025 10:37 AM EDT Pulse 88 02/06/2025 10:37 AM EDT Temperature 36.9 ??C (98.4 ??F) 02/06/2025 10:37 AM E DT Respiratory Rate 20 02/06/2025 10:37 AM EDT Oxygen Saturation 98% 02/06/2025 10:37 AM EDT Inhaled Oxygen Concentration - - Weight 137 kg (301 lb) 02/06/2025 10:37 AM EDT Height - - Body Mass Index 44.45 08/23/2024 11:53 AM EST documented in this encounter Progress Notes * Eleanor Bey MD - 02/06/2025 10:30 AM EDT Subjective Patient ID: Jonatan Merchant is a 44 y.o. male who presents for f up apt HPI 44 y old from [place] with PMX of morbid obesity, SHANITA -using CPAP,HTN,HLD,depression, Comes for f up apt Reports having 2 months bilateral knee pain right more than left associated with cracking sensation. Denies having any erythema, increasing skin temperature nor redness, also reports pain in his leftheel. Denies recent trauma. Takes Tylenol as needed ------ Assessment and Plan: Health care maintenance -Annual exam 08/2023 vaccines: s/P Covid 19 x2 booster advised at vaccine clinic, flu 08/2023, tdap 2019 ,HPV vaccine never But Refuse,hep B not immune-to offer at next apt for annual exam ----- -08/2024 hb 13.9 ,Vit B12 and folic acid wnl-repeat CBC at annual exam Morbid obesity -gained 9 pounds in last year -BMI 44<--- 43<--- 44 -Advised pt to improve diet and exercise,discussed healthy life style -saw tar pot worker 08/2025 -if no improvement would discuss at next apt about bariatric surgery option -06/2024 started on wegovy -not covered w insurance -will try Zepbound px today to px --Pt is interested in trying inj --Pt denies any personal or family Hx of thyroid cancer nor Hx of pancreatitis. Pxed today Tirzepatide 2.5 mg inj weekly ,explained possible SE . no phentarmine for psych disorder SHANITA -using CPAP -pt f w sleep med in 2022 -using CPAP HTN BP controlled -continue amlodipine 10 mg daily ---noted Trace pitting edema bl legs at last apt --possible 2/2 amlodipine may need to consider to change HDCTZ at next apt -EKG today 01/2025 For baseline: NSR,HR 74,Qtc 410, only noted Q wave in lead III but not seen in other leads -08/2024 microalb neg -opth 11/2022 Seen already -advised to bring BP readings at next visit -Will refer to ophthalmology at next appointment if not seen in last year HLD -08/2024 ,LDL 119, HDL 38, -life style changes advised -to monitor at annual exam Major depressive disorder with psychotic features PQ9: 17 ,does have sometimes SI ,not currently -saw Gavin Youssef 03/18/2024 with irritability, auditory hallucinations including commands; visual: shadows; also paranoia with sense of being watched and judged. Immature, plays with toys. Difficult historian. continue Lexapro 10 mg once daily, Olanzapine 7.5 mg at bedtime. F/U with therapist as usual. Since this provider will be retiring, patient is now referred back to his PCP for further medication management. Any issues or concerns, he should contact [facility]. -f w therapist -continue Lexapro 10 mg once daily +Olanzapine 7.5 mg daily -melatonin HS for insomnia -BH to se pt today to refer to therapist and psychiatrist ,will need to consider change of antipsychotic ( olanzapine) that likely is contributing to his weight gain and seems not stable w depression Alcohol binging Used to drink more before but states since last 3 years drinks less but drinks on weekends --1 to 2beers -advised to try to cut down on use -explained to pt that alcohol is another high source of caloriesand that will also affect his weight gain -will monitor Bilateral Knee pain Bl knee pain for last 2 months , R> L and left heel pain, Reports cranking , denies locking , denies erythema,swelling Takes tylenol Likely OA from obesity -bl knee XR and left foot XR -referred to PT today for knee pain -weight loss advised -tylenol prn ( has NSAIDS allergy) -EMLA cream Cognitive Impairment Reports had meningitis in childhood ,seems cognitive impairment with difficulty learning new things States his is the one that is in charge of paying bills ,he needs helps w apts and if completing forms - Since patient has some cognitive impairment which has not been evaluated before I am referring today to neuropsychology (request to Briseida Chavez to assist with referral who informed me that his insurance does not cover for this evaluation) -if pt had TBI that can make him qualify for coverage will ask at next apt Review of Systems -bl knee pain and left foot pain Objective BP 138/82 (BP Location: Left arm, Patient Position: Sitting, BP Cuff Size: Large adult) Pulse 88 Temp 98.4 ??F (36.9 ??C) (Oral) Resp 20 Wt 301 lb (137 kg) SpO2 98% BMI 44.45 kg/m?? Physical Exam Constitutional: General: He is not in acute distress. Appearance: Normal appearance. He is obese. Musculoskeletal: Comments: Bl knee pain , left foot pain Neurological: Mental Status: He is alert. Comments: Difficulty learning new things ,needs assistance when needs to complete forms Assessment/Plan Problem List Items Addressed This Visit Essential hypertension Relevant Medications amLODIPine (Norvasc) 10 MG tablet Other Relevant Orders ECG 12 lead (Completed) Obstructive sleep apnea syndrome Major depressive disorder with psychotic features ([facility]/HCC) Alcohol dependence, binge pattern ([facility]/HCC) Morbid obesity ([facility]) Health care maintenance Knee pain - Primary Relevant Orders Referral to Physical Therapy XR Knee 1-2 Views Bilateral Foot pain, left Cognitive impairment Other Visit Diagnoses Left foot pain Relevant Orders XR Foot 3+ Views Left Obesity (BMI 30-39.9) Relevant Medications Tirzepatide-Weight Management (Zepbound) 2.5 MG/0.5ML solution auto-injector Cognitive and behavioral changes Relevant Orders Referral to Neuropsychology Dietary counseling Exercise counseling documented in this encounter Plan of Treatment Upcoming Encounters Date Type Department Care Team (Late st Contact Info) Description 05/06/2025 9:15 AM EDT Office Visit [facility] [address] [place] [address] [phone] Eleanor Cedeño MD [address] [place] [address] Scheduled Orders Name Type Priority Associated Diagnoses Orde r Schedule XR Knee 1-2 Views Bilateral Imaging Routine Pain in both knees, unspecified chronicity Expected: 02/06/2025, Expires: 02/06/2026 XR Foot 3+ Views Left Imaging Routine Left foot pain Expected: 02/06/2025, Expires: 02/06/2026 Scheduled Referrals Name Type Priority Associated Diagnoses Order Schedule Referral to Physical Therapy Outpatient Referral Routine Pain in both knees, unspecified chronicity Expected: 02/06/2025 (Approximate), Expires: 02/06/2026 Referral to Neuropsychology Outpatient Referral Routine Cognitive and behavioral changes Expected: 02/06/2025 (Approximate), Expires: 02/06/2026 documented as of this encounter Procedures Procedure Name Priority Date/Time Associated Diagnosis Comments ECG 12-LEAD Routine 02/06/2025 11:39 AM EDT Essential hypertension documented in this encounter Results * ECG 12 lead (02/06/2025 11:39 AM EDT) Narrative Eleanor Cedeño MD - 02/06/2025 11:39 AM EDT -EKG today 01/2025 For baseline: NSR,HR 74,Qtc 410, only noted Q wave in lead III but not seen in other leads Eleanor Bey MD ECG ORDERABLES F inal Result documented in this encounter Visit Diagnoses Diagnosis Pain in both knees, unspecified chronicity- Primary Major depressive disorder with psychotic features (CMS/HCC) Left foot pain Pain in soft tissues of limb Obesity (BMI 30-39.9) Cognitive and behavioral changes Alcohol dependence, binge pattern (CMS/HCC) Essential hypertension Unspecified essential hypertension Dietary counseling Dietary surveillance and counseling Exercise counseling Obstructive sleep apnea syndrome Obstructive sleep apnea (adult) (pediatric) Morbid obesity (CMS/[facility]) Morbid obesity Health care maintenance Foot pain, left Pain in soft tissues of limb Cognitive impairment Unspecified persistent mental disorders due to conditions classified elsewhere documented in this encounter Additional Health Concerns Assessment Noted Time PHQ-9 Depression Total Score: 8 03/18/20 24 8:53 AM EDT documented as of this encounter Care Teams Optical Instrument Specialist Relationship Specialty Start Date End Date Eleanor Cedeño MD [address] [place] [address] PCP - General Internal Medicine 07/06/23 Tio Youssef FNP [address] [place] [address] Nurse Practitioner Family Medicine 09/05/23 documented as of this encounter
== END 2025-02-10 09:05 | disposition home or self-care (01) ==
LOC: HO.HHCX 09:04
PROVIDERS: Visit Provider Student in an Organized Health Care Education/Training Program
DX: M25.561 Pain in right knee (principal); M25.562 Pain in left knee; M79.672 Pain in left foot
CPT/HCPCS: 73560; 73630

== ENCOUNTER → 2025-02-10 09:04 | Outpatient (BNV) | payer OTHER, SELFPAY | PROVIDERS: Visit Provider Radiology Diagnostic Radiology | DX: M25.561 Pain in right knee (principal); M25.562 Pain in left knee; M79.672 Pain in left foot | CPT/HCPCS: 73560; 73630 ==